=== PATIENT | female | born 1945 | race Caucasian/White ===

== ENCOUNTER 2018-08-23 11:14 | Emergency (ER) | payer MEDICARE, BC ==
--- NOTE | 2018-08-23 12:36 | EDM.PDOC ---
ED HPI GENERAL MEDICAL PROBLEM - General Chief Complaint: Back Pain or Injury Time Seen by Provider: 08/23/18 11:30 Source of Information: Reports: Patient History Limitations: Reports: No Limitations - History of Present Illness INITIAL COMMENTS - FREE TEXT/NARRATIVE: Pt. presents to ER with complaints of low back pain without radicular component. Pt. states that she has been exerting herself doing yard work and packing books. Pt. states that she has a history of intermittent low back pain. Denies any specific injury; she feels that she overexerted herself. Denies any paresthesia in lower extremities. No saddle anesthesia, incontinence, or difficulty with ambulation. She states that she has been taking ibuprofen, aleve , and aspirin of minimal help. Onset: Today Onset Date: 08/23/18 Location: Reports: Back Treatments HAND NAILER: Reports: Cold Therapy, NSAIDS Lower Back Pain Score (Numeric/FACES): 10 - Related Data Allergies Allergy/AdvReac Type Severity Reaction Status Date / Time No Known Allergies Allergy Verified 08/23/18 11:27 Home Meds: Home Meds Omeprazole Magnesium [Prilosec] 10 mg DAILY 08/23/18 [History] Past Medical History Gastrointestinal History: Reports: Other (See Below) Other Gastrointestinal History: barretts esophagus - Past Surgical History Female Surgical History: Reports: Tubal Ligation Social & Family History - Tobacco Use Smoking Status *Q: Never Smoker - Recreational Drug Use Recreational Drug Use: No ED ROS GENERAL - Review of Systems Review Of Systems: See Below Constitutional: Reports: No Symptoms HEENT: Reports: No Symptoms Respiratory: Reports: No Symptoms Cardiovascular: Reports: No Symptoms Endocrine: Reports: No Symptoms GI/Abdominal: Reports: No Symptoms : Reports: No Symptoms Musculoskeletal: Reports: Back Pain Skin: Reports: No Symptoms Neurological: Reports: No Symptoms Psychiatric: Reports: No Symptoms Hematologic/Lymphatic: Reports: No Symptoms Immunologic: Reports: No Symptoms ED EXAM, GENERAL - Physical Exam Exam: See Below Exam Limited By: No Limitations General Appearance: Alert, WD/WN, No Apparent Distress Back Exam: Muscle Spasm, Paraspinal Tenderness Extremities: Normal Inspection, Normal Range of Motion, Non-Tender, Normal Capillary Refill, No Pedal Edema Course - Vital Signs Last Recorded V/S: Last Vital Signs Temp 36.7 C 08/23/18 11:15 Pulse 92 08/23/18 11:15 Resp 16 08/23/18 11:15 BP 185/81 H 08/23/18 11:15 Pulse Ox 98 08/23/18 11:15 Departure - Departure Time of Disposition: 12:38 Disposition: Home, Self-Care 01 Clinical Impression: Low back pain - Discharge Information Instructions: Cyclobenzaprine tablets, Acute Back Pain, Adult Referrals: PCP,Not In Area [Primary Care Provider] - Forms: ED Department Discharge Additional Instructions: Flexeril (cyclobenzaprine) 10 mg 1 tab 3 times daily for 10 days Ibuprofen 200mg 3 tabs every 6 hours for pain The flexeril may make you sleepy. Do not operate machinery immediately after taking, at least until you know how the medication makes you feel. - Assessment/Plan Plan: Flexeril (cyclobenzaprine) 10 mg 1 tab 3 times daily for 10 days Ibuprofen 200mg 3 tabs every 6 hours for pain The flexeril may make you sleepy. Do not operate machinery immediately after taking, at least until you know how the medication makes you feel.
== END 2018-08-23 12:00 | disposition home or self-care (01) ==
LOC: VM.ED 11:14
DX: M54.5 Low back pain (principal); Z98.51 Tubal ligation status; Z79.899 Other long term (current) drug therapy
CPT/HCPCS: 99283; 99283-GF